=== PATIENT | female | born 1965 | race Caucasian/White ===

== ENCOUNTER 2025-07-10 03:49 | Emergency (ER) | payer BC, SELFPAY ==
--- NOTE | ~2025-07-10 | XR_ITS ---
CLINICAL HISTORY: pain s p trauma 3 view right hand Comparison: None provided Findings: Bones intact. No dislocations. There is diffuse bony demineralization. No radiopaque foreign body. IMPRESSION: 1. No acute fracture or dislocation injury identified at the right hand. 2. Diffuse bony demineralization. This document has been electronically signed by: Jose Lennon MD on 07/10/2025 04:56:10
--- NOTE | ~2025-07-10 | XR_ITS ---
CLINICAL HISTORY: pain s p trauma 2 view right forearm Comparison: None provided Findings: No acute fractures or dislocations. No radiopaque foreign body. IMPRESSION: 1. No acute fracture or dislocation injury identified at the right forearm. This document has been electronically signed by: Jose Lennon MD on 07/10/2025 04:56:21
[2025-07-10 03:57] VITALS: BP 109/79; PULSE 87; RESP 18; TEMP 36.6; O2SAT 97; BMI 26.1
--- NOTE | 2025-07-10 05:44 | PC.NURSE ---
Pt visiting [facility] with son, they were unloading luggage when she stepped off cement curb and lost her balance falling backwards. Pt noted to have right wrist swelling, pain with movement, +CMS. Denies previous injuries besides to right collar bone, at baseline numbness in hand. She is right hand dominant. Pt rpeortng 1/10 pain after motrin was given. 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
--- OUTSIDE RECORDS SUMMARY | 2025-07-10 06:02 | XMS_ITS | Encounter Summary ---
Author Organization [facility] Address [facility] [address] Phone Care Team Providers Care Chuck Tender Name Role Phone Shanti Lara Primary Care Provider [phone] Sofia Doherty PA-C Unavailable [phone] Albertina Galdamez DO Primary Care Provider Reason for Referral * Consultation (Routine) - Closed Specialty Diagnoses / Procedures Referred By Lay trejo Referred To Contact Pulmonology [facility] Referral ID Status Reason Start Date Expiration Date V isits Requested Visits Authorized [id number] Closed Specialty Services Required 04/12/2021 04/12/2022 1 1 Comments This order was created through External Result Entry Encounter Details Date Type Department Care Team (Late st Contact Info) Description 04/12/2021 SCAN [facility] Pulmonary Medicine [facility] [address] [place] [address] Social History Tobacco Use Types Packs/Day Years Used Date Smoking Tobacco: Every Day Cigarettes Alcohol Use Standard Drinks/Week Comments No 0 (1 standard drink = 0.6 oz pur e alcohol) Comments No Sex and Gender Information Value Date Recorded Sex Assigned at Not on file Legal Sex Female 10:08 AM EDT Gender Identity Not on file Sexual Orientation Not on file documented as of this encounter Plan of Treatment Not on file documented as of this encounter Procedures Procedure Name Priority Date/Time Associated Diagnosis Comments AMB REFERRAL TO PULMONOLOGY Routine 04/12/2021 documented in this encounter Results * AMB REFERRAL TO PULMONOLOGY (04/12/2021) [facility] OUTPATIENT REFERRAL ORDERABLES F inal Result documented in this encounter Visit Diagnoses Not on filedocumented in this encounter Care Teams Chuck Tender Relationship Specialty Start Date End Date Shanti Lara PA PCP - General 05/04/20 07/29/23 Sofia Doherty PA-C [address] [place] [address] [place] [address] PCP - [facility] 12/24/21 02/22/22 Albertina Galdamez DO [address] [place] [address] [place] [address] PCP - General Family Medicine 07/30/23 documented as of this encounter
--- OUTSIDE RECORDS SUMMARY | 2025-07-10 06:02 | XMS_ITS | Clinical Summary ---
Author Organization [facility] 97 Care Team Providers Care Duralumin Mechanic Name Role Phone Albertina Galdamez DO Primary Care Provider Allergies Active Allergy Reactions Criticality Noted Date Comments Oxacillin Unknown 11/15/2012 Promethazine Hcl Unknown 11/15/2012 Tetracyclines & Related Unknown 11/15/2012 Medications predniSONE (DELTASONE) 10 MG TABS 6 tabs initially, then decrease by one tab daily until gone 21 tablet 0 08/21/2014 Active azithromycin (ZITHROMAX TRI-BRANDIN) 500 MG TABS Take 1 tablet by mouth daily. 3 tablet 0 08/21/2014 Active Active Problems No known active problems Family History Medical History Relation Name Comments Breast cancer Neg Hx Social History Tobacco Use Types Packs/Day Years Used Date Smoking Tobacco: Every Day Cigarettes Alcohol Use Standard Drinks/Week Comments No 0 (1 standard drink = 0.6 oz pur e alcohol) Food Insecurities Answer Date Recorded Worried about running out of food Not on file 11/14/2023 Food Bought Not on file 11/14/2023 Housing/Utilities Answer Date Recorded Worried about losing home Not on file 2023 Stayed outside house Not on file 11/14/2023 Unable to get utilities Not on file 11/14/19 Interpersonal Safety Answer Date Record ed Feel physically or emotionally unsafe where curr ently live Not on file 11/14/2023 Harm by anyone Not on file 11/14/2023 Emotionally Harmed Not on file 11/14/2023 Transportation Answer Date Recorded Worried about transportation Not on file Utilities Answer Date Recorded Worried about losing home Not on file 2023 Stayed outside house Not on file 02/26/2024 Unable to get utilities Not on file 02/26/20 24 Comments No Sex and Gender Information Value Date Recorded Sex Assigned at Not on file Legal Sex Female 10:08 AM EDT Gender Identity Not on file Sexual Orientation Not on file Last Filed Vital Signs Vital Sign Reading Time Taken Comments Blood Pressure 116/75 02/18/2022 1:56 PM EDT Pulse 137 02/18/2022 1:56 PM EDT Temperature 37.2 C (98.9 F) 08/21/2014 6:05 PM EDT Respiratory Rate 14 08/21/2014 8:12 PM EDT Oxygen Saturation 96% 08/21/2014 8:12 PM EDT Inhaled Oxygen Concentration - - Weight 67.1 kg (148 lb) 08/21/2014 6:05 PM EDT Height 165.1 cm (5' 5 ) 08/21/2014 6:05 PM EDT Body Mass Index 24.63 08/21/2014 6:05 PM EDT Plan of Treatment Health Maintenance Due Date Last Done Comments DTap,Tdap,and Td (1 - Tdap) 1977 Pneumococcal 50+ (1 of 2 - PCV) 1985 Pap Screening 1987 Colonoscopy 2011 Shingrix (#1) 01/27/2016 Mammogram Screening 01/31/2023 01/31/2022 COVID-19 Vaccine (2 - 2024-2 6 season) 2025 11/01/2021 Influenza Vaccine (#1) 2025 RSV Vaccine (60+ or ) (1 - 1-dose 75+ series) 2041 HPV Aged Out No longer eligi ble based on patient's age to complete this topic Meningococcal conjugate arun nt 4 (MCV4) Aged Out No longer eligible b ased on patient's age to complete this topic RSV Immunization (<20 months) Aged Out No longer eligible based on patient's age to complete this topic Procedures Procedure Name Priority Date/Time Associated Diagnosis Comments VALENTINA SCR BILAT Routine 01/31/2022 2:40 PM EDT Encounter for screening mammogram for malignant neoplasm of breast from Last 3 Months or Most Recently Relevant to Health Maintenance Results * (ABNORMAL) MAMMO SCRCAD DIGITAL BILATERAL (01/31/2022 2:40 PM EDT) Anatomical Region Laterality Modality Chest Bilateral Mammography, Rad iographic Imaging 01/31/2022 3:02 PM EDT Impressions 01/31/2022 3:04 PM EDT Indeterminate left breast mass, possibly a cyst but warranting further evaluation with ultrasound. CATEGORY BI-RADS: 0: Incomplete: Need additional imaging MANAGEMENT: Targeted ultrasound left breast NOTE: The breast center staff will notify the patient of the results. If there are questions about the content of this report, please contact [facility] radiology by calling [phone]. RISK ASSESSMENT: A preliminary breast cancer risk assessment was conducted as part of the patient?s screening mammogram. Patients with a preliminarily elevated screening score who are interested in further information are encouraged to contact [phone] a referral to the high risk breast program, [id number]. Patient's lifetime Mavis model risk: 6% (20% and greater considered high risk) [facility] Family History Risk Score: 0 (1 and greater considered high risk) Narrative 01/31/2022 3:04 PM EDT SCREENING DIGITAL BILATERAL MAMMOGRAM WITH COMPUTER AIDED DETECTION HISTORY: Routine annual screening COMPARISON: None TECHNIQUE: Bilateral mediolateral oblique and craniocaudal views with computer aided detection BREAST COMPOSITION: There are scattered areas of fibroglandular density FINDINGS: 1.3 cm oval hypodense mass with circumscribed margins in the upper slightly outer left breast at anterior depth. No other suspicious masses, suspicious microcalcifications or areas of nonsurgical architectural distortion identified. us Shanti DOMINGUEZ [facility] Final Result from Last 3 Months or Most Recently Relevant to Health Maintenance Insurance [facility] ALL OTHERS NOT MEDICARE Care Teams Duralumin Mechanic Relationship Specialty Start Date End Date Albertina Galdamez DO PCP - General Family Medicine 07/30/23
--- OUTSIDE RECORDS SUMMARY | 2025-07-10 06:02 | XMS_ITS | Encounter Summary ---
Author Organization [facility] Address [address] [place] [address] [place] [address] Phone Care Team Providers Care Road Supervisor Of Engines Name Role Phone Shanti Lara Primary Care Provider [phone] Sofia Doherty PA-C Unavailable [phone] Albertina Galdamez DO Primary Care Provider Reason for Referral * Consultation (Routine) - Closed Specialty Diagnoses / Procedures Referred By Contac t Referred To Contact Pulmonology [facility] Referral ID Status Reason Start Date Expiration Date V isits Requested Visits Authorized [id number] Closed Specialty Services Required 10/11/2021 10/11/2022 1 1 Comments This order was created through External Result Entry * Consultation (Routine) - Closed Specialty Diagnoses / Procedures Referred By Contac t Referred To Contact Pulmonology Shanti Lara PA Phone: tel: fax: Referral ID Status Reason Start Date Expiration Date V isits Requested Visits Authorized [id number] Closed Specialty Services Required 10/11/2021 10/11/2022 1 1 Comments This order was created through External Result Entry Encounter Details Date Type Department Care Team (Late st Contact Info) Description 10/11/2021 SCAN [facility] Pulmonary Medicine [facility] [address] [place] [address] Shanti Lara PA [address] [facility] [address] [place] [address] Social History Tobacco Use Types Packs/Day Years [...] Diagnosis Comments AMB REFERRAL TO PULMONOLOGY Routine 10/11/2021 AMB REFERRAL TO PULMONOLOGY Routine 10/10/2021 documented in this encounter Results * AMB REFERRAL TO PULMONOLOGY (10/11/2021) us [facility] OUTPATIENT REFERRAL ORDER SULMA Final Result * AMB REFERRAL TO PULMONOLOGY (10/10/2021) us Shanti DOMINGUEZ OUTPATIENT REFERRAL ORDERABLES Final Result documented in this encounter Visit Diagnoses Not on filedocumented in this encounter Care Teams Road Supervisor Of Engines Relationship Specialty Start Date End Date Shanti Lara PA PCP - General 05/04/20 07/29/23 Sofia Doherty PA-C [address] [place] [address] [place] [address] PCP - Medical [facility] 12/24/21 02/22/22 Albertina Galdamez DO [address] [place] [address] [place] [address] PCP - General Family Medicine 07/30/23 documented as of this encounter
--- OUTSIDE RECORDS SUMMARY | 2025-07-10 06:02 | XMS_ITS | Patient Health Record ---
Author Organization [facility] Address [address] [place] [address] Care Team Providers Care Fish Smoker Name Role Phone Albertina Galdamez DO Primary Care Provider UnavailJOEL Kent Unavailable [phone] Allergies Allergen (clinical drug ingredient) Drug/Non Drug Allergy documented on EMR Reaction Allergy Type Onset Date Status promethazine Phenergan Unknown Drug Allergy Acti ve amoxicillin Amoxicillin rash Drug Allergy Act mayito tetracycline Tetracycline rash Drug Allergy A ctive Results Component Value Reference Range Notes DME: A4467 NEOPRENE COMFORT COOL THUMB [facility] Reviewed date:10/28/2024 09:32:52 AM Interpretation:Pt received in office Performing Lab: Notes/Report: Pt received in office DME: L3923/L3924 - Controlle r Plus Reviewed date:10/28/2024 09:33:03 AM Interpretation:Pt received in office Performing Lab: Notes/Report: Pt received in office DME: A4467 GEL THUMB SUPPORT Reviewed date:10/28/2024 09:33:14 AM Interpretation:Pt received in office Performing Lab: Notes/Report: Pt received in office X ray: Hand, Left 3V (PA, la teral, oblique) Reviewed date:10/28/2024 09:29:29 AM Interpretation: Performing Lab: Notes/Report: Reason For Referral No Information Medications Medication SIG (Take, Route, Frequency, Duration) Notes Start Date End Date Status Breztri Aerosphere 160-9-4.8 MCG/ACT 2 puffs Inhalation Twice a day Active Albuterol Sulfate HFA 108 (90 Base) MCG/ACT 1 puff as needed Inhalation every 4 hrs Active Social History Tobacco Use: Social History Observation Description Date Details (start date - stop date) Current Smoker 10/26/1982 - NA SMOKING STATUS Question Answer Notes Are you a: current every day smoker When did you start smoking? 10/26/1982 smoking Cessation: Question Answer Notes Patient given information re garding the dangers of smoking and urged to quit 10/28/2024 Problems Problem Type SNOMED Code ICD Code Onset Dates Problem Status W/U Status Risk Notes Problem Localized, primary osteoarthritis of the hand (343286489) Primary osteoarthritis of first carpometacarpal joint of left hand (M18.12) Active confirmed Vital Signs Blood pressure diastolic 77 mm Hg 10/28/2024 Height 5ft 5in in 10/28/2024 Blood pressure systolic 107 mm Hg 10/28/2024 Weight 150.2 lbs 10/28/2024 BMI 24.99 10/28/2024 Encounters Encounter Location Date Provider Diagnosis [facility] [address] [place], [place] [id number] 10/28/2024 JOEL TOTH Primary osteoarthrit is of first carpometacarpal joint of left hand M18.12 Assessments Encounter Date Diagnosis (ICD Code) Assessment Notes Treatment Notes Treatment Clinical Notes Section Notes 10/28/2024 Primary osteoarthritis of first carpometacarpal joint of left hand (ICD-10 - M18.12) I have ordered the above Durable Medical Equipment today for the patient. This brace will be used indefinitely with a good prognosis if used as directed. They were given verbal instructions for use and care of the brace. They were educated to contact the office if they have any questions. 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 10/28/2024 Other I discussed the diagnosis as well as the surgical and nonsurgical treatment options with the patient today along with their associated risks and benefits. After thorough discussion, the patient has elected to proceed with conservative management. All questions were answered to the patients satisfaction who seems satisfied with the plan. , Learning About Benefits of Quitting Smoking material was published Plan Of Treatment No Information Medical (General) History Medical History History ICD Code COPD Arthritis Metal Implants Surgical History Surgery Date(Month/Year) x 3 1981, 1984,1989 shoulder surgery 2001, 2002, 2003 Hysterectomy Tonsillectomy Hospitalization History Reason Date(Month/Year) shoulder infection 2001, 2002 Surgeries
--- OUTSIDE RECORDS SUMMARY | 2025-07-10 06:02 | XMS_ITS | Referral Summary ---
Author Organization [facility] 97 Care Team Providers Care Biblical Studies Professor Name Role Phone Albertina Galdamez DO Primary [...] Active Active Problems No known active problems Social History Tobacco Use Types Packs/Day Years [...] 08/21/2014 6:05 PM EDT Plan of Treatment Not on file Procedures Procedure Name Priority Date/Time Associated Diagnosis [...] the content of this report, please contact [facility] radiology by calling [phone]. RISK ASSESSMENT: A preliminary breast cancer risk assessment was conducted as part of the patient?s screening mammogram. Patients with a preliminarily elevated screening score who are interested in further information are encouraged to contact [phone] a referral to the high risk breast program, [id number]. Patient's lifetime Mavis model risk: 6% (20% and greater considered high risk) [facility] Family History Risk Score: 0 (1 [...] or areas of nonsurgical architectural distortion identified. Shanti DOMINGUEZ [facility] Final Result from Last 3 Months or Most Recently Relevant to Health Maintenance Insurance [facility] [employer] ALL OTHERS NOT MEDICARE Care Teams Biblical Studies Professor Relationship Specialty Start Date End Date Albertina Galdamez DO PCP - General Family Medicine 07/30/23
--- NOTE | 2025-07-10 06:16 | ED.EXTPRO ---
HPI - Extremity Problem General Chief complaint: Extremity Injury, Upper Stated complaint: Fell, left arm pain Time Seen by Provider: 07/10/25 06:16 Source: patient Mode of arrival: ambulatory Limitations: no limitations History of Present Illness ED Provider: HPI Narrative: 60-year-old woman presenting with right hand pain after bracing her fall with her right hand, she has slight effusion of the right wrist. Denies any other trauma. Related Data Previous Rx's ?Medication ?Instructions ?Recorded oxycodone 5 mg tablet 5 mg PO Q6H PRN pain #4 tabs 07/10/25 Allergies Allergy/AdvReac Type Severity Reaction Status Date / Time Tetracyclines Allergy Rash Verified 07/10/25 03:59 Review of Systems Constitutional: Constitutional: Reports as per [facility] Social History Social History Advance Directives: No Advance Directives Information Provided: No Physical Exam Vital Signs: Vital Signs: Last Vital Signs Temp 97.9 F 07/10/25 03:57 Pulse 87 07/10/25 03:57 Resp 18 07/10/25 03:57 BP 109/79 07/10/25 03:57 Pulse Ox 97 07/10/25 03:57 O2 Del Method Room Air 07/10/25 03:57 BMI result Body Mass Index 26.1 Const: Other: Full range of motion right shoulder, right elbow, forearm compartments are soft, slight effusion of the wrist, no tenderness along scaphoid, radial ulnar pulses +2, able to spread her fingers, squeeze my hand give me a thumbs up, no sensory deficits, no deformity Alert and oriented inpatient x4 Atraumatic face and head Medications Administered Discontinued Medications Generic Name Dose Route Start Last Admin Trade Name Freq PRN Reason Stop Dose Admin Ibuprofen 600 mg 07/10/25 04:04 07/10/25 04:06 Ibuprofen 600 Mg Tablet PO 07/10/25 04:05 600 mg ONCE ONE Administration Medical Decision Making Medical Decision Making [facility] Narrative: 6:44 AM 07/10/2025 (Dr. Eusebio Mae): X-rays without fractures of the forearm are with the wrist, she is tender with the wrist, tender over TFCC, we will recommend MRI on outpatient basis in 2 weeks if she is not better, right now anti-inflammatories ice and splint Differential Diagnosis Differential Diagnoses: The differential diagnosis associated with the presentation includes (TFCC injury, scaphoid injury, fracture, sprain, septic joint) Independent Interpretation I performed an independent interpretation of an: Plain X-Ray (No fractures noted) Radiology Impression Discussion of test interpretation with radiology: I have reviewed the radiologist's reading. Discharge Plan Discharge Clinical Impression: Sprain and strain of wrist Patient Disposition: Home, Self-Care Instructions: Wrist Sprain (ED), Cold Compress or Soak (ED) Additional Instructions: Ibuprofen 400 mg every 6 hours around the clock for the next 3 days Ice wrist with a bag of ice 20 minutes every day Use splint for comfort and sleep As discussed in 2 weeks if still having pain I recommend MRI to evaluate for TFCC tear Pain medication oxycodone only if needed for the next few days to sleep Do not drive while taking this medication do not mix with alcohol The pharmacy is open 24 hours Prescriptions: New oxycodone 5 mg tablet 5 mg PO Q6H PRN (Reason: pain) Qty: 4 0RF Rx Instructions: Partial Fill upon patient request. Print Language: Bangladeshi
[2025-07-10 06:40] VITALS: BP 103/62; PULSE 67; RESP 16; TEMP 37; O2SAT 95
[2025-07-10 07:28] VITALS: BP 103/62; PULSE 67; RESP 16; TEMP 37; O2SAT 95
== END 2025-07-10 07:29 | disposition home or self-care (01) ==
PROVIDERS: Emergency Provider Emergency Medicine
DX: S63.501A Unspecified sprain of right wrist, initial encounter (principal); M79.601 Pain in right arm; X50.9XXA Other and unspecified overexertion or strenuous movements or postures, initial encounter; Y93.9 Activity, unspecified; Y92.9 Unspecified place or not applicable; Y99.8 Other external cause status
CPT/HCPCS: 73090; 73120; 99283; 99284; J8540

== ENCOUNTER → 2025-07-10 04:10 | Outpatient (BNV) | payer BC, SELFPAY | PROVIDERS: Visit Provider Radiology Diagnostic Radiology | DX: M85.841 Other specified disorders of bone density and structure, right hand (principal); M79.631 Pain in right forearm | CPT/HCPCS: 73090; 73120 ==